=== PATIENT | male | born 1965 | race Hispanic/Latino ===

== ENCOUNTER 2025-03-01 00:36 | Emergency (ER) | payer BC ==
[2025-03-01 01:00] LABS: Carbon Dioxide 18 mmol/L (23-31)
[2025-03-01] MEDS ORDERED: Nitroglycerin 2% Ointment 1 INCH/1 GM Packet ONE (01:03)
[2025-03-01] MEDS ORDERED: Furosemide 40 MG (4 mL) VIAL ONE (01:03)
[2025-03-01 01:08] LABS: Potassium 3.1 mmol/L (3.5-5.1); Sodium 142 mmol/L (136-145)
[2025-03-01 01:11] LABS: INR-International Normal Ratio 0.9; Prothrombin Time 12.6 sec (12.0-14.7)
[2025-03-01 01:12] LABS: PTT 29.5 sec (22.9-36.1)
[2025-03-01 01:13] LABS: Hematocrit 51.3 % (42.0-52.0); Hemoglobin 18.3 g/dL (14.0-18.0); MDiff Complete? YES; Mean Corpuscular Hemoglobin 29.5 pg (27.0-31.0); Mean Corpuscular Volume 82.5 fl (78.0-98.0); Platelet Adequacy Comment Appears Adequate; Platelet Count 274 10x3/uL (130-400); Red Blood Cell (RBC) Count 6.22 mill/uL (4.70-6.10); White Blood Cell (WBC) Count 12.8 10x3/uL (4.8-10.8)
[2025-03-01 01:22] LABS: Troponin I 0.161 ng/mL (< 0.028)
[2025-03-01 01:43] LABS: ALT (SGPT) 75 U/L (Less than 45); AST (SGOT) 92 U/L (11-34); Albumin 3.4 g/dL (3.1-4.5); Alkaline Phosphatase 98 U/L (40-110); Anion Gap 24 mmol/L (10-20); BUN (Urea Nitrogen) 17 mg/dL (8.4-25.7); Bilirubin, Total 0.5 mg/dL (0.3-1.2); Calc. Creatinine Clearance 0 mL/min (70-130); Calcium 9.1 mg/dL (7.8-10.44); Chloride 102 mmol/L (98-107); Glucose 349 mg/dL (80-115)
== END 2025-03-01 01:15 | disposition short-term general hospital (02) ==
LOC: BURERS 00:36
DX: J81.0 Acute pulmonary edema (principal); R06.03 Acute respiratory distress; E11.9 Type 2 diabetes mellitus without complications; I10 Essential (primary) hypertension; E78.00 Pure hypercholesterolemia, unspecified; F17.210 Nicotine dependence, cigarettes, uncomplicated; Z79.899 Other long term (current) drug therapy; Z79.84 Long term (current) use of oral hypoglycemic drugs
CPT/HCPCS: 71045; 80053; 83880; 84443; 84484; 85025; 85610; 85730; 93005; J1940